=== PATIENT | male | born 1975 | race Caucasian/White ===

== ENCOUNTER → 2016-03-31 | Outpatient (REF) | payer BC ==
[2016-03-31 13:29] LABS: BASOPHILS % (AUTO) 0 % (0-2); EOSINOPHILS # (AUTO) 0.1 10^3uL; EOSINOPHILS % (AUTO) 1 % (0-4); MEAN CORPUSCULAR HEMOGLOBIN 30.4 PG (26.0-34.0); MEAN CORPUSCULAR HGB CONC 35.4 g/dL (31.0-37.0); MEAN CORPUSCULAR VOLUME 86 FL (80-100); MONOCYTES # (AUTO) 1.1 X10^3; MONOCYTES % (AUTO) 10 % (3-11); NEUTROPHILS # (AUTO) 8.2 X10^3; NEUTROPHILS % (AUTO) 71 % (51-67); PLATELET COUNT 291 10^3uL (150-450); WHITE BLOOD COUNT 11.56 10^3uL (4.0-11.0)
[2016-03-31 13:49] LABS: ALBUMIN 4.6 g/dL (3.4-5.0); CALCULATED IONIZED CALCIUM 4.2 mg/dL (3.8-4.6); TOTAL PROTEIN 7.2 g/dL (6.4-8.5)
[2016-03-31 14:03] LABS: ANION GAP 17.5 MEQ/L (3-15)
== END ==
LOC: LAB 12:51
PROVIDERS: ATTEND Family Medicine
DX: T67.3XXA Heat exhaustion, anhydrotic, initial encounter (principal)
CPT/HCPCS: 80053; 85025; 86140

== ENCOUNTER → 2016-04-23 | Outpatient (REF) | payer BC ==
[2016-04-23 09:51] LABS: BASOPHILS % (AUTO) 1 % (0-2); EOSINOPHILS # (AUTO) 0.2 10^3uL; EOSINOPHILS % (AUTO) 2 % (0-4); LYMPHOCYTES # (AUTO) 3.3 X10^3; MEAN CORPUSCULAR HEMOGLOBIN 30.3 PG (26.0-34.0); MEAN CORPUSCULAR HGB CONC 34.6 g/dL (31.0-37.0); MEAN CORPUSCULAR VOLUME 88 FL (80-100); MEAN PLATELET VOLUME 8.7 FL (6.0-9.5); MONOCYTES # (AUTO) 0.9 X10^3; MONOCYTES % (AUTO) 10 % (3-11); NEUTROPHILS # (AUTO) 4.7 X10^3; NEUTROPHILS % (AUTO) 51 % (51-67); PLATELET COUNT 258 10^3uL (150-450); WHITE BLOOD COUNT 9.15 10^3uL (4.0-11.0)
[2016-04-23 10:20] LABS: ALBUMIN 4.7 g/dL (3.4-5.0); ANION GAP 18.9 MEQ/L (3-15); CALCULATED IONIZED CALCIUM 4.1 mg/dL (3.8-4.6); TOTAL PROTEIN 7.7 g/dL (6.4-8.5)
== END ==
LOC: LAB 09:34
PROVIDERS: ATTEND Family Medicine
DX: T67.3XXA Heat exhaustion, anhydrotic, initial encounter (principal); R53.83 Other fatigue
CPT/HCPCS: 80053; 85025; 86140